=== PATIENT | female | born 1995 ===

== ENCOUNTER 2024-09-24 17:06 | Emergency (ER) | payer OTHER, SELFPAY ==
--- NOTE | ~2024-09-24 | US_ITS ---
EXAMINATION: US ABDOMEN LIMITED CLINICAL INFORMATION: Right upper quadrant pain. COMPARISON: None available. TECHNIQUE: Real-time imaging of the gallbladder and common bile duct only. FINDINGS: GALLBLADDER: The gallbladder is contracted but without evidence of stones, sludge, polyps, wall thickening or pericholecystic fluid. COMMON BILE DUCT: Normal in caliber measuring 0.5 cm in diameter. US/US abdomen limited IMPRESSION: Normal-appearing contracted gallbladder and common bile duct. Electronically signed by: Seb Patel MD 09/24/2024 08:11 PM EST
--- NOTE | ~2024-09-24 | US_ITS ---
EXAMINATION: US APPENDIX CLINICAL INFORMATION: Reason for Exam-RLQ tenderness COMPARISON: None. TECHNIQUE: Imaging of the right lower quadrant was performed with a high-frequency linear transducer using graded compression. FINDINGS: Appendix: Non-visualized appendix. Free Fluid: No. Increased Echogenicity Of Periappendiceal Fat: No. Mesenteric Lymph Nodes: No. Abscess: No. Right Kidney: Only partially visualized but no hydronephrosis. Bladder: Not examined Additional Abnormalities: None. US/US appendix IMPRESSION: Non-visualized appendix with no ancillary findings to suggest appendicitis. Electronically signed by: Seb Patel MD 09/24/2024 07:45 PM [facility] [place]
--- NOTE | 2024-09-24 17:15 | ED_ITS ---
HPI - General Adult General Chief complaint: Abdominal Pain Stated complaint: abd pain, ? appendicitis Time Seen by Provider: 09/24/24 17:48 Source: patient Limitations: language barrier History of Present Illness ED Provider: Maya matson PA-C HPI narrative: 29-year-old female with a history of obesity presents with abdominal pain x3 days. Pain over epigastric and right upper quadrant, nonradiating, unable to describe the nature of her pain. Eating and drinking cause discomfort and nausea. Patient has had similar symptoms in the past. Denies history of kidney stones, dysuria, hematuria no fevers. No prior abdominal surgeries. Related Data Previous Rx's ?Medication ?Instructions ?Recorded sucralfate 100 mg/mL oral 10 ml PO QID PRN reflux #400 mL 09/24/24 suspension (Carafate) Allergies Allergy/AdvReac Type Severity Reaction Status Date / Time No Known Allergies Allergy Verified 09/24/24 17:20 Review of Systems 2 Review of Systems: Yes all other systems are reviewed and are negative Constitutional: Constitutional: Denies fatigue and Denies fever(s) Cardiovascular: Cardiovascular: Denies chest pain and Denies dyspnea Respiratory: Respiratory: Denies cough and Denies dyspnea Gastrointestinal: Gastrointestinal: Reports abdominal pain, Denies diarrhea, Reports nausea and Reports vomiting Genitourinary: Genitourinary: Denies hematuria, Denies dysuria and Denies flank pain Endocrine: Endocrine: Denies fatigue PMFSH Past Medical History Attestation statement: The following information was validated with the patient. Social History Social History Alcohol intake: never Smoked in Last 30 Days: Yes Use of substances other than those prescribed or required for medical reasons: No Advance Directives: No Advance Directives Information Provided: No Do you have a plan to hurt others: No Plan Physical Exam ED Vital Signs: Vital Signs - 24 hr 09/24/24 17:17 Temperature 98 F Pulse Rate 70 Respiratory Rate 19 Blood Pressure 135/82 Pulse Oximetry 99 Oxygen Delivery Method Room Air BMI result Body Mass Index 27.4 Const Other: Alert, overall well-appearing Orientation/consciousness: patient oriented x3 Resp Other: Nonlabored respirations Cardio Other: Normal peripheral perfusion GI Other: Abdomen is soft, nondistended, obese, mild tenderness epigastric and right upper quadrant with minimal involuntary guarding Skin Other: Warm dry no rash Neuro General: patient oriented x3, no focal motor deficits and CN's II-XI intact bilaterally Psych Other: Calm cooperative Course Course Course Narrative: This is a rapid medical exam performed by Lincoln Wooten NP: Additional HPI, ROS, PE not included below will be deferred to primary provider. Patient is a 29-year-old Bulgarian speaking female presenting to the ED with complaint of abdominal pain, referred from urgent care to rule out appendicitis. Patient states today is the third day of pain to RLQ of abdomen as well as nausea. Plan: Labs, UA, U/S Medications Administered Discontinued Medications Generic Name Dose Route Start Last Admin Trade Name Freq PRN Reason Stop Dose Admin Ketorolac Tromethamine 15 mg 09/24/24 18:48 09/24/24 19:19 Ketorolac Tromethamine 15 Mg/Ml Vial IM 09/24/24 18:49 15 mg ONCE ONE Administration Ondansetron HCl 4 mg 09/24/24 18:48 09/24/24 19:19 Ondansetron Odt 4 Mg Tab.Rapdis TRANSLINGU 09/24/24 18:49 4 mg ONCE ONE Administration Medical Decision Making Medical Decision Making [facility] Narrative: 29-year-old female with a history of obesity presents with abdominal pain x3 days. Pain over epigastric and right upper quadrant, nonradiating, unable to describe the nature of her pain. Eating and drinking cause discomfort and nausea. Patient has had similar symptoms in the past. Denies history of kidney stones, dysuria, hematuria no fevers. No prior abdominal surgeries. No known chronic issues History: Per patient I have considered the following differential diagnoses: Cholecystitis, biliary colic, gastritis, pancreatitis, renal colic Plan: Given distribution of discomfort in nature of pain, I am considering biliary versus gastric etiology as cause for symptoms. Unclear why, an ultrasound of the right lower quadrant was obtained from triage, perhaps there was miscommunication. We will be ordering an ultrasound of the right upper quadrant, giving Toradol and Zofran for discomfort. I did consider renal colic given upper right abdominal pain in relation to the flank, however she does not present as patients do when they are amidst renal colic, and she has no symptoms. I have independently reviewed the following tests: Labs: No leukocytosis, not anemic, no electrolyte abnormality, urine not infected Ultrasound right lower quadrant: US/US appendix IMPRESSION: Non-visualized appendix with no ancillary findings to suggest appendicitis. Electronically signed by: Seb Patel MD 09/24/2024 07:45 PM EST RP Ultrasound right upper quadrant: US/US abdomen limited IMPRESSION: Normal-appearing contracted gallbladder and common bile duct. Electronically signed by: Seb Patel MD 09/24/2024 08:11 PM EST RP Lab Data 09/24/24 17:30 09/24/24 17:30 Labs: Lab Results 09/24/24 Range/Units 17:30 WBC 8.0 (4.8-10.8) X10*3/uL RBC 4.10 L (4.20-5.50) X10*6/uL Hgb 10.9 L (12.0-16.0) g/dl Hct 34.2 L (37.0-47.0) % MCV 83.4 (80.0-98.0) fL MCH 26.6 L (27.0-33.0) pg MCHC 31.9 (31.0-35.0) g/dl RDW 14.1 (11.0-16.0) % Plt Count 268 (160-400) X10*3/uL MPV 10.1 (9.4-12.3) fL Immature Gran % (Auto) 0.4 (0.0-0.4) % Neut % (Auto) 58.3 (45-73) % Lymph % (Auto) 31.4 (20-40) % [place] % (Auto) 8.5 (2-11) % Eos % (Auto) 0.9 (0-4) % Baso % (Auto) 0.5 (0-2) % Lymph # (Auto) 2.5 (1.2-4.9) X10*3/uL [place] # (Auto) 0.7 (0.1-1.2) X10*3/uL Eos # (Auto) 0.1 (0.0-0.4) X10*3/uL Baso # (Auto) 0.0 (0.0-0.2) X10*3/uL Abs Immat Gran (auto) 0.03 (0.00-0.03) X10*3/uL Absolute Neuts (auto) 4.6 (2.0-8.3) x10*3/uL Absolute Nucleated RBC 0.000 (0.0-0.012) X10*3/uL Nucleated RBC % (auto) 0.0 (0.0-0.2) /100WBC Sodium 142 (135-145) mmol/L Potassium 4.2 (3.3-5.1) mmol/L Chloride 104 (96-108) mmol/L Carbon Dioxide 29 (22-29) mmol/L Anion Gap 13 (12-20) BUN 11 (9-16) mg/dL Creatinine 0.58 (0.5-1.4) mg/dL Estim Creat Clear Calc 127.0 Estimated GFR > 60 Random Glucose 81 (60-115) mg/dL Calcium 9.5 (8.4-10.2) mg/dL Total Bilirubin 0.2 (0.0-1.0) mg/dL AST 18 (5-31) U/L ALT 11 (0-31) U/L Alkaline Phosphatase 56 (39-117) U/L Total Protein 7.0 (6.5-8.0) g/dL Albumin 4.1 (3.5-5.0) g/dL Beta HCG, Quant < 2 mIU/mL Urine Color Yellow Urine Appearance Clear Urine pH 6.0 (5.0-9.0) Ur Specific [place] 1.015 (1.005-1.025) Urine Protein Negative (Neg-Trace) mg/dL Urine Glucose (UA) Negative (Negative) mg/dL Urine Ketones Negative (Negative) mg/dL Urine Blood Negative (Negative) Urine Nitrite Negative (Negative) Ur Leukocyte Esterase Negative (Negative) Discharge Plan Discharge Clinical Impression: Gastritis Patient Disposition: Home, Self-Care Instructions: Gastritis (ED), Diet for Stomach Ulcers and Gastritis (ED) Additional Instructions: You are being treated for gastritis. See home care instructions. I have also provided you with a special diet to help alleviate your symptoms. Use the Carafate for upper abdominal discomfort, you can take it 4 times a day before meals. If your symptoms persist, you may require a gastroenterology consult, your primary care provider can help organise this for you. All of your screening labs were completely normal, both ultrasounds of the abdomen were normal as well. Each ultrasound viewed different organ systems within the right side of the abdomen. Call your primary care provider tomorrow for a follow up appointment. Prescriptions: New sucralfate [Carafate] 100 mg/mL suspension 10 ml PO QID PRN (Reason: reflux) Qty: 400 0RF Rx Instructions: swish in mouth and swallow; use after food/drink Print Language: Bulgarian
[2024-09-24 17:17] VITALS: BP 135/82; PULSE 70; RESP 19; TEMP 36.6; O2SAT 99; BMI 27.4
[2024-09-24 17:37] LABS: MANUAL DIFF FLAG NO
[2024-09-24 17:40] LABS: Appearance Urine Clear; Color Urine Yellow; Glucose Urine UA Negative (Negative); Leukocyte Esterase Urine Negative (Negative); Nitrite Urine Negative (Negative); Specific Gravity - Urine 1.015 (1.005-1.025); Urine Blood Negative (Negative); Urine Ketones Negative (Negative); Urine Protein Negative (Neg-Trace)
[2024-09-24 18:04] LABS: Alanine Aminotransferase 11 U/L (0-31); Albumin Level 4.1 g/dL (3.5-5.0); Alkaline Phosphatase 56 U/L (39-117); Anion Gap 13 (12-20); Aspartate Amino Transferase 18 U/L (5-31); Bilirubin Total 0.2 mg/dL (0.0-1.0); Blood Urea Nitrogen 11 mg/dL (9-16); Calcium 9.5 mg/dL (8.4-10.2); Carbon Dioxide 29 mmol/L (22-29); Chloride 104 mmol/L (96-108); Estimated Glomerular Filt Rate > 60; Glucose Random 81 mg/dL (60-115); Potassium 4.2 mmol/L (3.3-5.1); Sodium 142 mmol/L (135-145)
[2024-09-24 18:15] LABS: HCG Quantitative < 2 mIU/mL
--- NOTE | 2024-09-24 18:15 | PC.NURSE ---
Patient reports rlq pain, stated was sent from urgent care. Reports nausea, no vomiting .
[2024-09-24 18:16] LABS: Basophils Percent Auto 0.5 % (0-2); Eosinophils Absolute Auto 0.1 X10*3/uL (0.0-0.4); Eosinophils Percent Auto 0.9 % (0-4); Hematocrit 34.2 % (37.0-47.0); Hemoglobin 10.9 g/dl (12.0-16.0); Imm Gran Abs Auto 0.03 X10*3/uL (0.00-0.03); Imm Gran Pct Auto 0.4 % (0.0-0.4); Lymphocytes Absolute Auto 2.5 X10*3/uL (1.2-4.9); Lymphocytes Percent Auto 31.4 % (20-40); Mean Corpuscular HGB Conc 31.9 g/dl (31.0-35.0); Mean Corpuscular Hemoglobin 26.6 pg (27.0-33.0); Mean Corpuscular Volume 83.4 fL (80.0-98.0); Mean Platelet Volume 10.1 fL (9.4-12.3); Monocytes Absolute Auto 0.7 X10*3/uL (0.1-1.2); Monocytes Percent Auto 8.5 % (2-11); Neutrophils Absolute Auto 4.6 x10*3/uL (2.0-8.3); Neutrophils Percent Auto 58.3 % (45-73); Platelet Count 268 X10*3/uL (160-400); Red Cell Distribution Width 14.1 % (11.0-16.0)
[2024-09-24] MEDS: Ondansetron ODT 4 MG TAB.RAPDIS TRANSLINGU (19:19)
[2024-09-24] MEDS: Ketorolac Tromethamine 15 MG/ML VIAL IM (19:19)
--- NOTE | 2024-09-24 19:23 | PC.NURSE ---
This RN assumed pt care @ 1900. Pt a&ox3, no signs of distress. Pt reporting 10/10 abd pain. Pt medicated per jan, tolerated well. Plan of care ongoing.
[2024-09-24] MEDS: Sucralfate Oral Suspension 1 GM/10 ML ORAL.SUSP PO (21:20)
[2024-09-25 00:41] VITALS: BP 130/80; PULSE 78; RESP 20; TEMP 36.7; O2SAT 98
== END 2024-09-24 21:15 | disposition home or self-care (01) ==
PROVIDERS: Registered Nurse Emergency; Emergency Provider Emergency Medicine
DX: K29.70 Gastritis, unspecified, without bleeding (principal); R10.11 Right upper quadrant pain
CPT/HCPCS: 36415; 76705; 80053; 81003; 84702; 85025; 96372; 99284; J1885

== ENCOUNTER 2025-09-28 10:30 | Outpatient (REF) | payer OTHER, MEDICAID, SELFPAY ==
[2025-09-28 11:12] LABS: MANUAL DIFF FLAG NO
[2025-09-28 11:25] LABS: Hematocrit 37.4 % (37.0-47.0); Hemoglobin 12.3 g/dl (12.0-16.0); Imm Gran Abs Auto 0.01 X10*3/uL (0.00-0.03); Imm Gran Pct Auto 0.2 % (0.0-0.4); Lymphocytes Absolute Auto 1.9 X10*3/uL (1.2-4.9); Mean Corpuscular HGB Conc 32.9 g/dl (31.0-35.0); Mean Corpuscular Hemoglobin 28.8 pg (27.0-33.0); Mean Corpuscular Volume 87.6 fL (80.0-98.0); NRBC Abs Auto 0.000 X10*3/uL (0.0-0.012); NRBC Pct Auto 0.0 /100WBC (0.0-0.2); Platelet Count 239 X10*3/uL (160-400); Red Blood Count 4.27 X10*6/uL (4.20-5.50); White Blood Count 5.2 X10*3/uL (4.8-10.8)
[2025-09-28 15:48] LABS: Thyroid Stimulating Hormone 0.69 uIU/mL (0.32-4.0)
[2025-09-28 15:49] LABS: Anion Gap 13 (12-20)
[2025-09-28 15:54] LABS: Alanine Aminotransferase 14 U/L (0-31); Albumin Level 4.7 g/dL (3.5-5.0); Alkaline Phosphatase 44 U/L (39-117); Aspartate Amino Transferase 21 U/L (5-31); Blood Urea Nitrogen 10 mg/dL (9-16); Calcium 9.4 mg/dL (8.4-10.2); Carbon Dioxide 25 mmol/L (22-29); Chloride 107 mmol/L (96-108); Cholesterol 195 mg/dL (<200); Estimated Glomerular Filt Rate > 60; HDL Cholesterol 57 mg/dL (>40); Potassium 3.5 mmol/L (3.3-5.1); Sodium 141 mmol/L (135-145); Total Protein 7.5 g/dL (6.5-8.0); Triglycerides 82 mg/dL (<150)
== END 2025-09-28 10:31 | disposition home or self-care (01) ==
LOC: HO.HHCL 10:30
PROVIDERS: Visit Provider Registered Nurse Psychiatric/Mental Health
DX: Z79.899 Other long term (current) drug therapy (principal)
CPT/HCPCS: 36415; 80053; 80061; 82248; 84436; 84443; 85025